=== PATIENT | male | born 1985 | race Caucasian/White ===

== ENCOUNTER 2018-05-23 10:07 | Emergency (ER) | payer OTHER ==
[2018-05-23] MEDS ORDERED: RANITIDINE 50 MG/2 ML VIAL IVP ONE (10:18)
[2018-05-23] MEDS ORDERED: NS 1,000 ML IV ONE (10:20)
--- NOTE | 2018-05-23 10:26 | EDPHY ---
General Time Seen by Provider: 05/23/18 10:20 Narrative: CHIEF COMPLAINT: Anaphylaxis HISTORY OF PRESENT ILLNESS: Patient arrives by EMS and is seen at time of arrival. He complains of allergic reaction to peanuts. He says he accidentally ingested some food with peanuts just prior to arrival. This was just before attempting a hike. Immediately realized this, and attempted to make himself vomit. Immediately felt some swelling of the throat and mouth, difficulty breathing and talking and some drooling. He administered his own epinephrine pen to the thigh. EMS was activated. When they arrived administered a 2nd dose of epinephrine, Benadryl IM, Solu-Medrol IV, and IV fluid. He also received 2 albuterol treatments. At time my examination he is feeling significantly improved. He does have rash and itching throughout but no abnormality of the mouth. No other associated complaints or modifying factors REVIEW OF SYSTEMS: 10 systems were reviewed and negative with the exception of the elements mentioned in the history of present illness. PCP: Dr. Ontiveros SPECIALISTS: None PAST MEDICAL HISTORY: Orthopedic injuries PAST SURGICAL HISTORY: Orthopedic surgeries SOCIAL HISTORY: Nonsmoker. Occasional marijuana use. Lives independently with his spouse. FAMILY HISTORY: Noncontributory EXAMINATION: General Appearance: Alert, no distress. Speaking in full sentences. Head: normocephalic, atraumatic Eyes: Pupils equal and round, no conjunctival pallor or injection ENT, Mouth: Mucous membranes moist. Airway is widely patent. There is no edema of the lips or tongue. No trismus. No drooling. Neck: Normal inspection, supple, non-tender Respiratory: Lungs are clear to auscultation Cardiovascular: Regular rate and rhythm Gastrointestinal: Abdomen is soft and nontender Back: non-tender, no bony abnormalities Neurological: GCS 15. A&O, nonfocal, normal gait Skin: Warm and dry. Mild urticaria to the arms, legs and trunk. Extremities: Nontender, no pedal edema Psychiatric: Mood and affect normal DIFFERENTIAL DIAGNOSES: Including but not limited to anaphylaxis, allergic reaction, angioedema, acute respiratory failure, hives, urticaria MDM: 10:15 a.m. Acute anaphylaxis to accidental peanut ingestion. He has had 2 rounds of epinephrine, 50 mg of Benadryl, 125 mg Solu-Medrol, 2 rounds of albuterol. Epinephrine dose most recently 1 hr prior to examination. He is feeling significantly better. Airway is patent without edema. I have ordered ranitidine to complete his therapy. He is on a cardiac catheterization technologist. We will monitor him closely 10:45 a.m. Patient re-evaluated. Resting comfortably. Airway is widely patent. No trismus. No stridor. Continue to monitor 11:15 a.m. Patient re-evaluated. Resting comfortably. No acute distress. Airway remains patent. Continue to monitor 11:45 a.m. Patient re-evaluated. Patient has been here for nearly 2 hr. He has not required any further epinephrine. He did receive further IV fluid and IV radiating here. He is awake and alert. He is conversing appropriately. He has tolerated intake by mouth. He has no rash at this time. I do feel he is stable for discharge home. We discussed the risk of rebound anaphylaxis and he has multiple epinephrine pens at home should they be needed. We discussed continuation of antihistamines and steroid. We discussed ED precautions. Comfortable this plan. Discharged stable condition SUPERVISION: Patient was independently examined, but I discussed the case with my secondary supervising physician Dr. Pena CONSULTATION: None - History Smoking Status: Never smoked - Objective Vital Signs: Initial Vital Signs Temperature (C) 97.3 F 05/23/18 10:16 Heart Rate 90 05/23/18 10:16 Respiratory Rate 18 05/23/18 10:16 Blood Pressure 127/95 H 05/23/18 10:16 O2 Sat (%) 95 05/23/18 10:16 O2 Delivery Mode Room Air O2 (L/minute) 2 Allergies/Adverse Reactions: penicillin G Allergy (Verified 05/23/18 10:15) tree nut [Nuts] Allergy (Verified 05/23/18 10:15) Home Medications: Medication Instructions Recorded Proair Hfa 05/23/18 predniSONE [Deltasone] 60 mg PO DAILY #9 tablet 05/23/18 Medications Given: Discontinued Medications Sodium Chloride (Ns) 1,000 mls @ 0 mls/hr IV EDNOW ONE; Wide Open PRN Reason: Protocol Stop: 05/23/18 10:21 Last Admin: 05/23/18 10:22 Dose: 1,000 mls Ranitidine HCl (Zantac) 50 mg IVP EDNOW ONE Stop: 05/23/18 10:19 Last Admin: 05/23/18 10:23 Dose: 50 mg Departure - Departure Disposition: Home, Routine, Self-Care Clinical Impression: Acute anaphylaxis Qualifiers: Encounter type: initial encounter Qualified Code(s): T78.2XXA - Anaphylactic shock, unspecified, initial encounter Condition: Good Instructions: Epinephrine (By injection), Anaphylaxis (ED) Additional Instructions: 1. Continue Benadryl every 6 hr for the next 1-3 days 2. Continue Zyrtec once or twice daily for the next 1-3 days 3. Steroid as prescribed to completion 4. Keep or epinephrine pen with for the next 6-8 hours. ED precautions for signs of rebound anaphylaxis as we discussed Referrals: VALENTIN ONTIVEROS [Primary Care Provider] - As per Instructions Prescriptions: predniSONE [Deltasone] 60 mg PO DAILY #9 tablet
[2018-05-23 12:15] VITALS: BP 105/66
== END 2018-05-23 12:15 | disposition home or self-care (01) ==
DX: T78.01XA Anaphylactic reaction due to peanuts, initial encounter (principal); E86.9 Volume depletion, unspecified
CPT/HCPCS: 96374; J2780